=== PATIENT | male | born 1970 | race Caucasian/White ===

== ENCOUNTER 2019-12-06 22:56 | Emergency (ER) | payer MEDICAID ==
[~2019-12-06] VITALS: Ht 182.9 cm; Wt 77.1 kg
[2019-12-06 22:58] VITALS: BP 130/85
--- NOTE | 2019-12-06 22:58 | NUR ---
PT TAKEN TO CHAIR A
--- NOTE | 2019-12-06 23:10 | NUR ---
PATIENT BIB [employer]. PATIENT EXAMINED BY DR. SILVEIRA. PATIENT MEDICALLY CLEARED AND RELEASED IN CUSTODY IN STABLE CONDITION. ORIGINAL PRE-BOOK FORM GIVEN TO [employer], #400.
== END 2019-12-06 23:10 | disposition home or self-care (01) ==
LOC: MED 22:56
DX: H53.8 Other visual disturbances (principal); Z02.89 Encounter for other administrative examinations
CPT/HCPCS: 99283